=== PATIENT | female | born 1985 | race Hispanic/Latino ===

== ENCOUNTER 2019-03-22 00:21 | Emergency (ER) | payer OTHER ==
[~2019-03-22] VITALS: Ht 160 cm; Wt 104.3 kg
[2019-03-22] MEDS ORDERED: HYDROCODONE/APAP 5MG-325MG TAB ONE (00:52)
[2019-03-22] MEDS ORDERED: HYDROCODONE/APAP 10MG-325MG TAB PO PRN (01:00)
== END 2019-03-22 00:59 | disposition home or self-care (01) ==
LOC: FSED 00:21
DX: K29.00 Acute gastritis without bleeding (principal); Z88.1 Allergy status to other antibiotic agents
CPT/HCPCS: 99282